=== PATIENT | male | born 2000 | race Two or more races ===

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

== ENCOUNTER 2022-06-04 11:22 | Emergency (ER) | payer BC, MEDICAID ==
[~2022-06-04] VITALS: Ht 190.5 cm; Wt 75.0 kg
[2022-06-04 12:13] VITALS: BP 139/85
== END 2022-06-04 14:40 | disposition home or self-care (01) ==
LOC: ER 11:22
DX: S43.015A Anterior dislocation of left humerus, initial encounter (principal); F12.90 Cannabis use, unspecified, uncomplicated; Z98.890 Other specified postprocedural states; X58.XXXA Exposure to other specified factors, initial encounter; Y93.89 Activity, other specified; Y92.89 Other specified places as the place of occurrence of the external cause; Y99.8 Other external cause status
CPT/HCPCS: 23650; 73030

== ENCOUNTER 2023-11-06 20:23 | Emergency (ER) | payer BC, MEDICAID ==
[~2023-11-06] VITALS: Ht 190.5 cm; Wt 67.6 kg
[2023-11-06 21:04] LABS: Urine Bacteria None Seen /hpf (None Seen)
[2023-11-06 21:26] LABS: Urine Blood Negative /uL (Negative); Urine Clarity Clear (Clear); Urine Color Light-Orange (Yellow); Urine Mucus FEW (None Seen); Urine Protein, UAD 2+ (Negative); Urine Specific Gravity 1.041 (1.001-1.035); Urine Urobilinogen 12 mg/dL (Negative); Urine WBC 20 /hpf (0 - 3); Urine pH 7.5 (5.0-9.0)
[2023-11-06] MEDS ORDERED: HYDR-4902 PO (21:52)
[2023-11-06] MEDS ORDERED: CIPR-173 PO (21:52)
[2023-11-06 22:25] VITALS: BP 131/90; PULSE 94; RESP 16; TEMP 97.9; O2SAT 96
[2023-11-06] MEDS: KETOROLAC TROMETH 60MG/2ML VIAL IM ONE (22:32)
[2023-11-08 22:06] LABS: Chlamydia Trachomatis, NAA Negative (Negative); Neisseria gonorrhoeae, NAA Negative (Negative)
== END 2023-11-06 22:42 | disposition home or self-care (01) ==
LOC: ER 20:23
DX: N50.811 Right testicular pain (principal); N30.01 Acute cystitis with hematuria; Z79.899 Other long term (current) drug therapy
CPT/HCPCS: 76870; 81001; J1885